=== PATIENT | male | born 1950 | race Caucasian/White ===

== ENCOUNTER 2017-08-13 06:44 | Outpatient (CLI) | payer OTHER, SELFPAY ==
[2017-08-13 07:10] VITALS: BMI 29.5
[2017-08-13 07:30] VITALS: BP 131/76; PULSE 79; RESP 20; TEMP 36.6
[2017-08-13] MEDS: LACTATED RINGERS 1,000 ML 42 ML IV (07:30)
[2017-08-13 08:05] LABS: INR 4.4 (0.9-1.3); Prothrombin Time 47.2 SECONDS (10.1-12.7)
--- NOTE | 2017-08-13 08:17 | SUR.PREOP ---
INR done preoperatively revealing elevated level at 4.4. This is verified by lab. Surgery cancelled due to risk of bleed. Dr. Sierra has spoken with the patient and his son, Donato regarding what to do next. That is to stop by his primary MD's office today, and that Dr Sierra will paln to reschedule as soon as possible. Patient also told to resume all meds except the Warfarin today as would usually be taken. Son present for all instructions.
== END 2017-08-13 14:10 | disposition home or self-care (01) ==
LOC: AC 08:22 → LAB 08-20 12:43
PROVIDERS: Visit Provider Orthopaedic Surgery
DX: Z79.01 Long term (current) use of anticoagulants (principal)
CPT/HCPCS: 36415; 85610